=== PATIENT | female | born 2000 | race Caucasian/White ===

== ENCOUNTER 2024-08-19 16:59 | Emergency (ER) | payer MEDICAID, SELFPAY ==
[2024-08-19 17:04] VITALS: BP 153/89; PULSE 104; TEMP 36.8; O2SAT 97; BMI 35.2
--- NOTE | 2024-08-19 17:09 | XR_ITS ---
The [address] [address] Patient Name: CLAUDIA SOSA MRN: [id number] date: 2000 Sex: F Assigned Patient Location: ER Current Patient Location: ED.MAIN Accession/Order Number: [id number] Exam Date: 08/19/2024 17:41 Report Date: 08/19/2024 19:13 At the request of: ESPERANZA TRUONG Procedure: XR chest 1V EXAMINATION: XR chest 1V HISTORY: congestion/cough 1 month COMPARISON: No relevant comparison available. FINDINGS: LUNGS: Mild opacities within left lung base obscuring the bronchovascular markings. VASCULATURE: No increased pulmonary vasculature. PLEURA: No pneumothorax, effusion, or pleural thickening. CARDIAC: No cardiomegaly or cardiac silhouette abnormality. MEDIASTINUM: No visible mass or adenopathy. BONES: No fracture or visible bone lesion. OTHER: Negative. XR/XR chest 1V IMPRESSION: 1. Mild left basilar infiltrates versus atelectasis. Electronically authenticated by: VLADISLAV CISNEROS Date: 08/19/2024 19:13
[2024-08-19 17:42] LABS: Influenza Virus A Antigen Negative; Influenza Virus B Antigen Negative
[2024-08-19 17:43] LABS: Internal Control Within Normal Limits; SARS-CoV-2 Ag NEGATIVE (NEGATIVE)
--- NOTE | 2024-08-19 18:47 | ED_ITS ---
HPI - URI/Sore Throat General Chief Complaint: Upper Respiratory Infection Stated Complaint: URTI Time Seen by Provider: 08/19/24 18:05 Source: patient Limitations: no limitations History of Present Illness HPI Narrative: Patient is coming to us with a 27 days history of cough associated with the chronic nasal congestion, mentioned that sometimes this will get better but it is continuously congested and she is continuously having a cough The patient mentioned that this started earlier weeks of July and she continued to have it No fever or chills no decreased p.o. intake or difficulty breathing Related Data Previous Rx's ?Medication ?Instructions ?Recorded doxycycline hyclate 100 mg capsule 100 mg PO BID 7 days #14 caps 08/19/24 fluticasone propionate 50 1 spray intranasal Q12H #16 grams 08/19/24 mcg/actuation nasal spray,suspension (Flonase Allergy Relief) guaifenesin 600 mg tablet, 600 mg PO Q12H PRN congestion #10 08/19/24 extended release 12 hr (Mucinex) tabs Allergies Allergy/AdvReac Type Severity Reaction Status Date / Time No Known Drug Allergies Allergy Verified 08/19/24 17:04 Review of Systems ROS Status of ROS 10 or more systems reviewed and unremark able except as noted in history and below Exam Narrative Exam Narrative: Nurses notes and vital signs reviewed and patient is not hypoxic. General: Well-appearing and in no apparent distress. Skin: Warm, dry, no pallor noted. No rash. Head: Normocephalic, atraumatic. Neck: Supple, non-tender. Eye: Pupils are equal, round and EOMI. No scleral icterus. Ears, Nose, Mouth, and Throat: The patient nasal mucosa shows significant erythema and congestion there is a mild discomfort with pressure ,uvula is mid- line Cardiovascular: Regular Rate and Rhythm without murmur, gallop or rub. Respiratory: No accessory muscle use or respiratory distress. Lungs are clear to auscultation, no wheezing, rales or rhonchi Chest Wall: no tenderness Back: No midline thoracic or lumbar vertebral tenderness. No CVA tenderness Musculoskeletal: normal ROM, no calf or popliteal tenderness, no lower extremity edema/swelling GI: Abdomen is soft, non-distended. Normal bowel sounds. No masses appreciated. No tenderness to palpation. No rebound, guarding, or rigidity noted. Neurological: A&O x4. No cranial nerve dysfunction observed. No truncal ataxia. Moves all extremities. Sensation intact. Psychiatric: Cooperative and interactive. Normal mood and affect. Constitutional Vital Signs, click to edit/add: Last Vital Signs Temp 98.3 F 08/19/24 17:04 Pulse 104 H 08/19/24 17:04 Resp 18 08/19/24 17:04 BP 153/89 H 08/19/24 17:04 Pulse Ox 97 08/19/24 17:04 O2 Del Method Room Air 08/19/24 17:04 Course Vital Signs Vital signs: Vital Signs Temperature 98.3 F 08/19/24 17:04 Pulse Rate 104 H 08/19/24 17:04 Respiratory Rate 18 08/19/24 17:04 Blood Pressure 153/89 H 08/19/24 17:04 Pulse Oximetry 97 08/19/24 17:04 Oxygen Delivery Method Room Air 08/19/24 17:04 Temperature 98.3 F 08/19/24 17:04 Pulse Rate 104 H 08/19/24 17:04 Respiratory Rate 18 08/19/24 17:04 Blood Pressure 153/89 H 08/19/24 17:04 Pulse Oximetry 97 08/19/24 17:04 Oxygen Delivery Method Room Air 08/19/24 17:04 MDM - URI/Sore Throat MDM Narrative Medical decision making narrative: Due to the chronicity of the patient symptoms and the fact that she has been having nasal drip and cough for the last more than 2 weeks The patient will be covered with doxycycline as well as Mucinex and Flonase Chest x-ray showed no acute pathology on prelim reading The patient is to follow up with primary care physician in next 2-3 days or to return to the emergency department should any of the signs or symptoms worsen or new symptoms develop. The patient agrees with the following Diagnosis and Treatment plan and the patient will be discharged home. Lab Data Labs: Lab Results 08/19/24 Range/Units 17:08 Influenza Type A Ag Negative Influenza Type B Ag Negative SARS-CoV-2 Ag (CV2AG) Negative (NEGATIVE) Discharge Plan Discharge Chief Complaint: Upper Respiratory Infection Clinical Impression: Acute sinusitis, Bronchitis Patient Disposition: Home, Self-Care Time of Disposition Decision: 18:47 Condition: Good Prescriptions / Home Meds: New guaifenesin [Mucinex] 600 mg tablet extended release 12hr 600 mg PO Q12H PRN (Reason: congestion) Qty: 10 0RF fluticasone propionate [Flonase Allergy Relief] 50 mcg/actuation spray,suspension 1 spray intranasal Q12H Qty: 16 0RF Rx Instructions: administer into each nostril doxycycline hyclate 100 mg capsule 100 mg PO BID 7 Days Qty: 14 0RF Print Language: Kinyarwanda Instructions: Sinusitis (ED), Acute Bronchitis (ED) Referrals: Physician,Non-Staff, MD [Primary Care Provider] - 1 week
== END 2024-08-19 19:23 | disposition home or self-care (01) ==
PROVIDERS: Emergency Provider Emergency Medicine
DX: J40 Bronchitis, not specified as acute or chronic (principal); J32.9 Chronic sinusitis, unspecified; Z20.822 Contact with and (suspected) exposure to COVID-19
CPT/HCPCS: 71045; 87804; 87811; 99284

== ENCOUNTER 2025-08-05 12:54 | Emergency (ER) | payer MEDICAID, SELFPAY ==
[2025-08-05 13:00] VITALS: BP 152/92; PULSE 100; TEMP 36.8; O2SAT 100; BMI 37.1
--- NOTE | 2025-08-05 13:13 | XR_ITS ---
The [place] [id number] Patient Name: CLAUDIA SOSA MRN: [id number] date: 2000 Sex: F Assigned Patient Location: ER Current Patient Location: ED.MAIN Accession/Order Number: [id number] Exam Date: 08/05/2025 13:20 Report Date: 08/05/2025 13:56 At the request of: DANIELLE DIETZ Procedure: XR ankle RT min 3V RIGHT ANKLE - 3 views CLINICAL HISTORY: Fall, Ankle pain COMPARISON: None FINDINGS: Diffuse soft tissue swelling. Ankle mortise appears intact. No acute bony process. XR/XR ankle RT min 3V IMPRESSION: DIFFUSE SOFT TISSUE SWELLING WITHOUT ACUTE BONY PROCESS. Impression dictated by: Henry Moran Jr., D.O. 08/05/2025 1:56 PM Dictation Location: [place] [address] Electronically authenticated by: [id number] Y Date: 08/05/2025 13:56
--- NOTE | 2025-08-05 13:14 | ED_ITS ---
HPI HPI - General Adult General Chief complaint: Extremity Injury, Lower Stated complaint: LOWER EXTREMITY INJURY Time Seen by Provider: 08/05/25 13:02 Source: patient Mode of arrival: walk-in Limitations: no limitations History of Present Illness HPI narrative: Patient is a 24-year-old female that presents emergency department with complaints of persistent right ankle pain after she tripped down a few stairs about 5 days ago now last Tuesday. She states that her foot went back behind her. She was unable to ambulate without pain the first few days so she rested, iced, and elevated. She did take ibuprofen. She states that she started to walk a little bit on it this weekend but is still having some pain with dorsi flexion and eversion with ambulation. She does not have much pain at rest. She denies any ecchymosis. Related Data Allergies Allergy/AdvReac Type Severity Reaction Status Date / Time No Known Drug Allergies Allergy Verified 08/05/25 12:59 Opioid HPI Opioid Management Most Recent Opioid Data: Last Pain Scale 5 Today, 13:00 Review of Systems ROS Status of ROS 10 or more systems reviewed and unremark able except as noted in history and below PFSH PFSH Social History Little interest or pleasure in doing things: not at all Feeling down, depressed, or hopeless: not at all Exam Narrative Exam Narrative: General: No distress, age-appropriate Skin: Warm, dry, no pallor. No rash. Head: Normocephalic, atraumatic. Neck: Supple, non-tender. Eye: Pupils are equal, round and EOMI. No scleral icterus. Ears, Nose, Mouth, and Throat: No nasal mucosal hypertrophy. Oral mucosa is moist, no posterior oropharynx erythema, uvula is mid-line Cardiovascular: Regular Rate and Rhythm without murmur, gallop or rub. Respiratory: No accessory muscle use or respiratory distress. Lungs are clear to auscultation, no wheezing, rales or rhonchi Chest Wall: no tenderness Back: No midline thoracic or lumbar vertebral tenderness. Musculoskeletal: Full ROM of all extremities, no calf or popliteal tenderness. Mild swelling laterally. Healing ecchymosis laterally no distal fibula tenderness. ATFL tenderness. No gross instability on anterior drawer lateral tilt test 5/5 strength in eversion/inversion, plantarflexion/dorsiflexion. 2+ DP pulse palpated. Sensation intact distally with light touch. GI: Abdomen is soft, non-distended, non tender to palpation. No masses appreciated. No rebound, guarding, or rigidity noted. Neurological: A&O x4. No cranial nerve dysfunction observed. No truncal ataxia. Moves all extremities. Sensation intact. Psychiatric: Cooperative and interactive. Normal mood and affect. Constitutional Vital Signs, click to edit/add: Last Vital Signs Temp 98.3 F 08/05/25 13:00 Pulse 100 H 08/05/25 13:00 Resp 12 08/05/25 13:00 BP 152/92 H 08/05/25 13:00 Pulse Ox 100 08/05/25 13:00 O2 Del Method Room Air 08/05/25 13:00 Documenting provider has reviewed patient's vital signs: yes Course Vital Signs Vital signs: Vital Signs Temperature 98.3 F 08/05/25 13:00 Pulse Rate 100 H 08/05/25 13:00 Respiratory Rate 12 08/05/25 13:00 Blood Pressure 152/92 H 08/05/25 13:00 Pulse Oximetry 100 08/05/25 13:00 Oxygen Delivery Method Room Air 08/05/25 13:00 Temperature 98.3 F 08/05/25 13:00 Pulse Rate 100 H 08/05/25 13:00 Respiratory Rate 12 08/05/25 13:00 Blood Pressure 152/92 H 08/05/25 13:00 Pulse Oximetry 100 08/05/25 13:00 Oxygen Delivery Method Room Air 08/05/25 13:00 Medical Decision Making MDM Narrative Medical decision making narrative: This is a 24-year-old female that presents 5 days after a trip and fall down the stairs injuring her right ankle. She initially rested, iced, and took ibuprofen for the first few days and started to bear more weight the past few days. She still reports pain with ambulation. She denies any previous surgery to this ankle. On arrival patient is in no distress. Blood pressure is hypertensive 152/92, vitals are hemodynamically stable. Patient is afebrile and had a percent O2 saturation on room air. X-ray right ankle ordered. Patient denies need for pain medication. X-ray right ankle reviewed by myself as well as radiological read negative for fracture or dislocation. Ankle mortise intact. Diffuse soft tissue swelling. I discussed results with patient and recommended either a cam walking boot or a lace up ankle brace as she is still having some pain with ambulation. She denies cam walking boot. She does not work. She states she thinks she will be okay she does want to make sure her ankle was not broken. We discussed follow- up with PCP if pain persist for another 1 to 2 weeks. Patient was discharged in stable condition, return precautions discussed, with close follow-up with PCP. Differential Diagnosis Differential Diagnosis: Ankle sprain, ankle fracture Imaging Data X-ray right ankle: Attestation: I have reviewed the pertinent imaging results. Radiologist's impression: ITS Impressions Ankle X-Ray 08/05/25 13:13 IMPRESSION: DIFFUSE SOFT TISSUE SWELLING WITHOUT ACUTE BONY PROCESS. Impression dictated by: Henry Moran Jr., D.O. 08/05/2025 1:56 PM Dictation Location: [employer] Electronically authenticated by: [id number] Y Date: 08/05/2025 13:56 Discharge Plan Discharge Chief Complaint: Extremity Injury, Lower Clinical Impression: Ankle sprain Patient Disposition: Home, Self-Care Time of Disposition Decision: 14:07 Condition: Good Mode of Transportation: Private Vehicle Print Language: Tunisian Instructions: Ankle Sprain (ED) Referrals: Physician,Non-Staff, [Physician] - 1 week
--- OUTSIDE RECORDS SUMMARY | 2025-08-05 13:42 | XMS_ITS | CCD ---
Author Organization [facility] Care Team Providers Care Packaging Materials Inspector Name Role Phone Unallocated , Noms Provider Primary Care Provi erica BANG SETH Attending Unavailable Allergies Allergy Classification Reported Allergen(s) Allergy Type Date of Onset Reaction(s) Facility (2 sources) Doxycycline Drug Allergy GI intolerance [facility] Medications Current Medications Medication Drug Class(es) Dates Sig (Normalized) Sig (Original) fluticasone propionate 0.05 mg/actuat metered dose nasal spray (3 sources) Corticosteroid Start: 08-20-2024 take 1 spray(s) nasal route twice daily as needed fluticasone (Flonase) 50 MCG/ACT nasal spray Administer 1 spray into each nostril 2 (two) times a day as needed for allergies 08/20/2024 Active Start: 08-20-2024 take 1 spray(s) nasa l route in the morning fluticasone (Flonase) 50 MCG/ACT nasal spray Administer 1 spray into each nostril in the morning and 1 spray before bedtime. 08/20/2024 Active 12 hr guaiFENesin 600 mg extended release oral tablet (3 sources) Start: 08-20-2024 Mucus Relief 600 MG 12 hr tablet Take 600 mg by mouth every 12 (twelve) hours if needed 08/20/2024 Active levoFLOXacin 750 mg oral tablet (2 sources) Quinolone Antimicrobial Start: 10-01-2024 End: 10-08-2024 take 1 tablet by mouth once daily levoFLOXacin (Levaquin) 750 MG tablet Indications: Bronchitis Take 1 tablet (750 mg) by mouth Daily for 7 days 7 tablet 10/01/2024 10/08/2024 Active Completed/Discontinued Medications Medication Drug Class(es) Dates Sig (Normalized) Sig (Original) doxycycline hyclate 100 mg oral capsule (3 sources) Tetracycline-cla ss Drug Start: 08-20-2024 End: 10-01-2024 take 1 capsule by mouth in the morning doxycycline (Vibramycin) 100 MG capsule Take 100 mg by mouth in the morning and 100 mg before bedtime. 08/20/2024 10/01/2024 Discontinued (Therapy completed) Problems Problem Classification Problem Date Documented Da te Episodic/Chronic Chronic obstructive pulmonary disease and bronchiectasis (2 sources) Bronchitis; Translations: [Bronchitis, not specified as acute or chronic] 10-01-2024 Episodic Vital Signs Date Time Vital Sign Value Performing Clinician Faci lity 10-01-2024 15:56-0500 Body height 152.4 cm Bang Seth MD Work Phone: [facility] 10-01-2024 15:56-0500 Body mass index (BMI) [Ratio] 35.15 kg/m2 Bang Seth MD Work Phone: [facility] 10-01-2024 15:56-0500 Body weight 81.65 kg Bang Seth MD Work Phone: [facility] 10-01-2024 15:56-0500 Heart rate 68 /min Bang Seth MD Work Phone: [facility] 10-01-2024 15:56-0500 SaO2% (BldA) [Mass fraction] 98 % Bang Seth MD Work Phone: [facility] Encounters Encounter Date Encounter Type Care Provider Facility Start: 10-01-2024 End: 10-01-2024 ambulatory BANG SETH Not Available Start: 10-01-2024 End: 10-01-2024 Office outpatient new 30 minutes Bang Seth MD Work Phone: [facility] Comment on above: Bronchitis (Primary Dx) Start: 10-01-2024 End: 10-01-2024 Bamboo flowsheet Bang Seth MD Work Phone: [facility] Start: 10-01-2024 End: 10-01-2024 Bamboo flowsheet Bang Seth MD Work Phone: [facility] Plan of Treatment Date Care Activity Detail Author Start: 06-24-2024 Influenza vaccination Influenza Vacc ine (#1) [facility] Payers Date Payer Category Payer Medicaid [facility] [id number] 2022 Medicaid [id number] 2000 Unknown [id number] Social History Date Type Detail Facility Tobacco smoking stat [facility] Tobacco smoking consumption unknown [facility] Start: 2000 Sex assigned at Not on file [facility] Start: 10-01-2024 Gender identity Not on file [facility] Start: 10-01-2024 Tobacco smoking stat [facility] Never smoked tobacco [facility] Start: 10-01-2024 Tobacco use and exposure Smokeless t obacco non-user [facility] Start: 10-01-2024 Alcoholic beverage intake Ex-drinker (finding) [facility] Start: 10-01-2024 History of Social function [facility] History of Present illness Narrative 10-01-2024 Bang Seth MD - 10/01/2024 3:30 PM EST Note Date & Type Note Facility 10-01-2024 History of Presen t illness Narrative Images from the original note were not included. Patient ID: Livia Montenegro is a 23 y.o. female who presents for: Needs wellness if going to continue with us, has only been seen once by Gifty in 2018 Upper Respiratory Infection Patient complains of symptoms of a URI. Symptoms include right ear pressure/pain, congestion, cough described as nonproductive, non productive cough, sinus pressure, and sore throat. Onset of symptoms was several months ago, and has been unchanged since that time. Treatment to date: none. Review of Systems Constitutional: Negative for chills and fever. HENT: Positive for congestion. Negative for ear pain, sinus pressure, sinus pain and sore throat. Respiratory: Positive for cough. Negative for shortness of breath and wheezing. Neurological: Positive for headaches. Negative for light-headedness. Objective In general the patient is pleasant and in no acute distress. Bilateral ears, canals are within normal limits. Right TM is transparent and somewhat retracted. Left TM is transparent and somewhat retracted. No fluid layer. Bilateral nares demonstrate inflamed mucosa. Oropharynx has moist mucosa there is no specific evidence of thrush. There is mild erythema of the pharynx. Shoddy bilateral anterior cervical adenopathy. No signs of respiratory distress. Patient is speaking full sentences. There are Coarse but symmetrical breath sounds. No rhonchi or rales are appreciated. No wheezes. Skin is warm and dry Visit Vitals Pulse 68 Ht 5' Wt 180 lb SpO2 98% BMI 35.15 kg/m OB Status Having periods Smoking Status Never BSA 1.86 m Allergies Allergen Reactions Doxycycline GI intolerance vomiting Current Outpatient Medications on File Prior to Visit Medication Sig Dispense Refill fluticasone (Flonase) 50 MCG/ACT nasal spray Administer 1 spray into each nostril 2 (two) times a day as needed for allergies Mucus Relief 600 MG 12 hr tablet Take 600 mg by mouth every 12 (twelve) hours if needed [DISCONTINUED] doxycycline (Vibramycin) 100 MG capsule Take 100 mg by mouth in the morning and 100 mg before bedtime. No current facility-administered medications on file prior to visit. 1. Bronchitis (Primary) Acute problem. I did discuss with her the health department update indicating significant mycoplasma in the area. We have mutually agreed to trial treatment to include mycoplasma coverage. In prescribing a new medication consideration of the following encompasses moderate decision making: the current prescriptions and supplements, the current allergies and medication intolerances, the current medical conditions, and potential drug interactions. Risks, benefits, and reason for starting their medication were discussed. The patient was given a chance to ask questions today and all questions were answered. The patient is to contact us if any other questions arise or if any problems occur with the adjustment in their medication. - levoFLOXacin (Levaquin) 750 MG tablet; Take 1 tablet (750 mg) by mouth Daily for 7 days Dispense: 7 tablet; Refill: 0 I did discuss with her that her family has been in my practice for some time. She is technically a new patient and we are not accepting new patients. Having said this I have asked her to go ahead and schedule wellness so that she can remain in the practice. documented in this encounter [facility] Evaluation note Note Date & Type Note Facility Evaluation note Diagnosis Bronchitis- Primary Bronchitis, not specified as acute or chronic documented in this encounter [facility] Healthcare Summary Purpose Family History No Family History Records Found Advance Directives No Advanced Directives Records Found Additional Source Comments Care Teams (unrecognized sec tion and content) Packaging Materials Inspector Relationship Specialty Start Date End Date Unallocated, Jae Garcia MD [address] [place] [address] PCP - General Family Medicine 10/01/24 Packaging Materials Inspector Relationship Specialty Start Date End Date Unallocated, Jae Garcia MD [address] [place] [address] PCP - General Family Medicine 10/01/24 INFORMATION SOURCE (unrecogn ized section and content) DATE CREATED AUTHOR 10/04/2024 [facility] EPIC Reason for Visit (unrecogniz ed section and content) Reason Comments URI FOR RECORDS PERTAINING TO PATIENTS WHO ARE OR HAVE BEEN ENROLLED IN A CHEMICAL DEPENDENCY/SUBSTANCEABUSE PROGRAM, SOME INFORMATION MAY BE OMITTED. This clinical summary was aggregated from multiple sources. Caution should be exercised in using it in the provision of clinical care. This summary normalizes information from multiple sources, and as a consequence, information in this document may materially change the coding, format and clinical context of patient data. In addition, data may be omitted in some cases. CLINICAL DECISIONS SHOULD BE BASED ON THE PRIMARY CLINICAL RECORDS. [facility] [employer] provides no warranty or guarantee of the accuracy or completeness of information in this document.
== END 2025-08-05 14:35 | disposition home or self-care (01) ==
PROVIDERS: Emergency Provider Emergency Medicine; PCP Family Medicine
DX: S93.401A Sprain of unspecified ligament of right ankle, initial encounter (principal); M25.571 Pain in right ankle and joints of right foot; W10.9XXA Fall (on) (from) unspecified stairs and steps, initial encounter; M25.471 Effusion, right ankle
CPT/HCPCS: 73610; 99283